=== PATIENT | female | born 1955 | race Caucasian/White ===

== ENCOUNTER → 2016-08-23 | Outpatient (CLI) | payer OTHER | LOC: MRI 10:00 | DX: K86.1 Other chronic pancreatitis (principal); R74.8 Abnormal levels of other serum enzymes | CPT/HCPCS: 74181 ==

== ENCOUNTER 2020-05-27 10:58 | Emergency (ER) | payer OTHER ==
[~2020-05-27 10:58] MED LIST: ANTIVERT 25MG T25 MG PO
[2020-05-27 11:45] LABS: HEMOGLOBIN 14.7 gm/dl (12.3-15.3); RED BLOOD COUNT 5.36 M/UL (4.00-5.10); WHITE BLOOD COUNT 5.3 K/UL (4.5-11.0)
[2020-05-27 12:02] LABS: BUN/CREATININE RATIO 19 (0-10)
== END 2020-05-27 13:30 | disposition home or self-care (01) ==
LOC: ER1 10:58
PROVIDERS: Physician Assistant
DX: N28.1 Cyst of kidney, acquired (principal); K76.0 Fatty (change of) liver, not elsewhere classified; K21.9 Gastro-esophageal reflux disease without esophagitis; I10 Essential (primary) hypertension; Z90.710 Acquired absence of both cervix and uterus; R11.0 Nausea
CPT/HCPCS: 36415; 80053; 81001; 85025; 96374; 96375; 99284; J2270; J2405

== ENCOUNTER → 2021-03-06 | Outpatient (CLI) | payer OTHER | LOC: EXRD 13:12 | DX: R47.9 Unspecified speech disturbances (principal); I65.23 Occlusion and stenosis of bilateral carotid arteries | CPT/HCPCS: 93880 ==

== ENCOUNTER → 2021-03-13 | Outpatient (CLI) | payer OTHER | LOC: KOH-I 08:14 | DX: R47.9 Unspecified speech disturbances (principal); R93.0 Abnormal findings on diagnostic imaging of skull and head, not elsewhere classified | CPT/HCPCS: 70551 ==

== ENCOUNTER → 2021-05-11 | Outpatient (CLI) | payer MEDICARE, OTHER | LOC: RAD 13:10 | DX: R05.3 Chronic cough (principal) | CPT/HCPCS: 71046 ==

== ENCOUNTER → 2021-06-21 | Outpatient (CLI) | payer MEDICARE, OTHER | LOC: KOH-I 10:00 | DX: J41.1 Mucopurulent chronic bronchitis (principal); R91.8 Other nonspecific abnormal finding of lung field | CPT/HCPCS: 71250 ==

== ENCOUNTER → 2021-09-12 | Outpatient (CLI) | payer MEDICARE, OTHER | LOC: HEART 5 15:46 | DX: R91.8 Other nonspecific abnormal finding of lung field (principal) | CPT/HCPCS: 94010; 94729 ==